=== PATIENT | female | born 1950 | race Caucasian/White ===

== ENCOUNTER 2019-06-13 16:03 | Emergency (ER) | payer OTHER, SELFPAY ==
[2019-06-13 16:04] VITALS: BP 122/71; PULSE 84; RESP 16; TEMP 36.3; O2SAT 95; BMI 25.5
[2019-06-13 16:47] LABS: Red Blood Cells-Urine 0 SEEN /hpf (0-5)
[2019-06-13 16:51] LABS: Color, Urine Yellow (Yellow); Glucose, Dipstick 100 mg/dl (Normal); Ketone-Dipstick Negative (Negative); Leukocyte Esterase-Dipstick 100 /ul (Negative); Nitrite-Dipstick Negative (Negative); Occult Blood-Urine Negative /ul (Negative); Protein-Dipstick Negative (Negative); Urine Bilirubin Dipstick Negative (Negative); Urine Clarity Sl. Cloudy (Clear); Urine Urobilinogen Normal (Normal)
--- NOTE | 2019-06-13 17:01 | CT_ITS ---
STUDY: CT ABDOMEN AND PELVIS WITH CONTRAST REASON FOR EXAM: Female, 68 years old. Lower abdominal pain. Nausea. RADIATION DOSAGE (If Supplied By Facility): CTDIvol = ( 13.22 ) mGy, DLP = ( 799.06 ) mGycm TECHNIQUE: Transaxial images were obtained from the dome of the diaphragm to the symphysis pubis without oral contrast. 100 IV Isovue 300 was administered. Sagittal and coronal images were reconstructed. Individualized dose optimization techniques were used for this CT. COMPARISON: None. FINDINGS: Small bilateral pleural effusions with subsegmental atelectasis at the lung bases. Heart is mildly enlarged. The liver is mildly enlarged. It demonstrates multiple small ill-defined hypodense lesions most suspicious for metastatic disease. There is marked biliary ductal dilatation in the left lobe with ill-defined low attenuation area containing multiple focal calcifications in segment 2A. Normal portal vein. There are surgical clips in the gallbladder fossa consistent with a prior cholecystectomy. There is mild splenomegaly. Normal pancreas. Normal bilateral adrenal glands. Normal right kidney. Normal left kidney. Normal visualized stomach. Normal small intestine. Normal colon. There is non-visualization of the appendix. There is diffuse thickening and increased density within the omentum suspicious for metastatic disease. There is diffuse ascites within the abdominal cavity without visualized. Needle implantation. There is diffuse atherosclerotic calcification of the abdominal aorta, without a demonstrated aneurysm. Normal inferior vena cava. There is AP window and left periaortic lymphadenopathy extending to the level of the bifurcation. Urinary bladder is collapsed otherwise unremarkable. Normal vaginal cuff. There is no pelvic lymphadenopathy. No free air is seen within the peritoneal cavity. There is mild anasarca of the soft tissues. There are degenerative changes of the hips and lumbar spine. CT/Abdomen/Pelvis W IV Cont ONLY IMPRESSION: 1. Diffuse ascites. 2. Omental thickening suggestive of metastatic disease. 3. Multiple vaguely hypoechoic foci within the liver suggesting metastatic disease. There is a larger area of abnormality with calcifications in the left liver causing biliary ductal dilatation. 4. Mild hepatomegaly. 5. Small bilateral pleural effusions and atelectasis. 6. Mild cardiomegaly. 7. Retroperitoneal lymphadenopathy. N.B. : The above information has been verbally conveyed by Armando Muniz DO to Monico Winslow MD, on 06/13/2019 18:04:27 (ET). Electronically Signed: Armando Muniz DO at 18:05 EDT Tel [phone], Service support ,
[2019-06-13 17:02] LABS: Absolute Neutrophil Count 10.2 X10^3/uL (2.0-7.7); Basophil# 0.01 X10^3/uL; Basophil% 0.1 % (0-1); Eosinophil# 0.01 X10^3/uL; Eosinophils% 0.1 % (0-5); Hematocrit 35.1 % (37-47); Hemoglobin 11.4 g/dL (12.0-15.0); Lymphocyte % 4.3 % (19-41); Mean Corp Hgb Conc 32.5 g/dL (32-36); Mean Corpuscular Volume 89.3 fL (81-99); Mean Platelet Vol. 8.8 fl (6.2-12.0); Monocyte# 0.96 X10^3/uL; Monocyte% 8.2 % (0-10); NRBC Flagged by Analyzer 0 % (0-5); Neutrophil # 10.19 X10^3/uL (2.7-7.7); Neutrophil % 86.7 % (47-70); POSITIVE DIFFERENTIAL YES; Platelet Count 360 K/mm3 (150-450); RBC Distribution Width CV 12.9 % (11.6-14.6); RBC Distribution Width SD 42.4 fl (35.1-43.9); Red Blood Count 3.93 M/mm3 (4.2-5.4); White Blood Count 11.7 K/mm3 (4.4-11.0)
[2019-06-13 17:16] LABS: Differential Indicated SCAN CRITERIA MET
[2019-06-13 17:33] LABS: Anion Gap 7 (5-15); BUN 15 mg/dL (7-18); BUN/Creat Ratio 18.7 RATIO (10-20); Calcium,Total 8.8 mg/dL (8.5-10.1); Chloride 102 mmol/L (98-107); EST Glomerular Filtration Rate 75 mL/min (>60); Est Glom Filt Rate - Afr Amer 91 mL/min (>60); Glucose 117 mg/dL (74-106); Potassium 3.3 mmol/L (3.5-5.1); Sodium Level 137 mmol/L (136-145)
[2019-06-13 17:37] LABS: Mucous, Urine 2+ /hpf (<or=2+); Squamous Epithelial Cells - UA 0-5 SEEN /hpf (5-10); White Blood Cells 0-5 SEEN /hpf (0-5)
[2019-06-13 17:38] LABS: Bacteria RARE /hpf (None Seen)
[2019-06-13 17:48] LABS: AST(SGOT) 16 U/L (15-37); Alanine Aminotransfer ALT/SGPT 15 U/L (13-56); Albumin, Serum 2.9 g/dL (3.2-5.0); Alkaline Phosphatase 95 U/L (45-117); Bilirubin, Direct 0.14 mg/dL (0.00-0.30); Globulin 4.1 g/dL (2.2-4.2); Platelet Estimate ADEQUATE (ADEQ)
[2019-06-13] MEDS: Morphine 4 MG/ML Syringe IV (17:48)
[2019-06-13] MEDS: 0.9% Normal Saline 1,000 ML 1000 ML IV (17:48)
[2019-06-13] MEDS: Ondansetron 4 MG/2 ML Vial IV (17:48)
[2019-06-13 17:49] LABS: Red Cell Morphology NORM C+C NORMAL (NORM C&C)
--- NOTE | 2019-06-13 18:16 | US_ITS ---
STUDY: ULTRASOUND OF THE FEMALE PELVIS - COMPLETE REASON FOR EXAM: Female, [address] Patient thinks ovaries have been removed with hysterectomy. TECHNIQUE: Transabdominal TECHNICAL QUALITY: Adequate. COMPARISON: CT of the abdomen and pelvis, June 13, 2019 FINDINGS: The uterus is surgically absent There is a soft tissue density along the right pelvic sidewall measuring 2.2 x 1.3 x 1.6 cm. This contains a 9 mm cyst. It is uncertain whether this represents a loop of bowel or the right ovary. There is no visualized right adnexal mass or complex lesion. The left ovary is not visualized. There is no visualized left adnexal mass or complex lesion. There is a large amount of ascites within the pelvis. US/Transvaginal Non- IMPRESSION: 1. Status post hysterectomy. 2. Nonvisualization left ovary. 3. Question right ovary containing a cyst versus a loop of small bowel. Electronically Signed: Armando Muniz DO at 19:32 EDT Tel [phone], Service support ,
--- NOTE | 2019-06-13 20:34 | ED.VISSUMM ---
- ER Visit Summary Date of Service: 06/13/19 Chief Complaint: Abdominal pain History of Present Illness: The patient is a [address] Ochoa. She reports that she has abdominal pain began 2 months ago and is gradually gotten worse. Said a constant aching pain that is sharp at times. She reports that she feels bloated. Pain is 9 out of 10 at worst and 7 on 10 currently. Is worsened by movement and relieved by remaining still. She has had nausea without vomiting. No diarrhea. Her last bowel was yesterday. No melena or hematochezia. She does report decreased flatus. She reports that she does have dysuria every once in a while. She did have this today. She is also had frequent urination. Patient reports that she had a hysterectomy in the distant past. They did not remove her ovaries. She had a colonoscopy approximately 13 years ago. Physical Examination: Vitals: Stable. Afebrile. General: Well-nourished and well-developed. Head: Normocephalic atraumatic. Neck: Supple, no lymphadenopathy. No JVD. Nontender. Cardiovascular: Regular rate and rhythm. No murmurs. Respiratory: No respiratory distress. Clear to auscultation bilaterally. Abdominal: Soft, mild diffuse tenderness to palpation, nondistended, normal bowel sounds. No guarding, rebound, or peritoneal signs. Back: Nontender. Extremities: Nontender, no edema. Skin: Normal color, no rash. Neurologic: Alert and oriented ?3. Cranial nerves II through XII are intact. Normal strength and sensation. Psych: Normal affect. Test Results: CBC shows a white count of 11.7, H&H of 11.4 and 35.1, 7 neutrophils 87, lymphocytes 4. Chem-7 shows a potassium 3.3 and glucose 117. LFTs showed albumin 2.9. UA is negative. Clinical Impression(s) from Imaging Studies Abdomen/Pelvis CT 06/13/19 17:01 IMPRESSION: 1. Diffuse ascites. 2. Omental thickening suggestive of metastatic disease. 3. Multiple vaguely hypoechoic foci within the liver suggesting metastatic disease. There is a larger area of abnormality with calcifications in the left liver causing biliary ductal dilatation. 4. Mild hepatomegaly. 5. Small bilateral pleural effusions and atelectasis. 6. Mild cardiomegaly. 7. Retroperitoneal lymphadenopathy. N.B. : The above information has been verbally conveyed by Armando Muniz DO to Monico Winslow MD, on 06/13/2019 18:04:27 (ET). Electronically Signed: Armando Muniz DO at 18:05 EDT Tel [phone], Service support , ADDENDUM: 06/13/19 1812 IMPRESSION: 1. Diffuse ascites. 2. Omental thickening suggestive of metastatic disease. 3. Multiple vaguely hypoechoic foci within the liver suggesting metastatic disease. There is a larger area of abnormality with calcifications in the left liver causing biliary ductal dilatation. 4. Mild hepatomegaly. 5. Small bilateral pleural effusions and atelectasis. 6. Mild cardiomegaly. 7. Retroperitoneal lymphadenopathy. N.B. : The above information has been verbally conveyed by Armando Muniz DO to Monico Winslow MD, on 06/13/2019 18:04:27 (ET). Electronically Signed: Armando Muniz DO at 18:05 EDT Tel [phone], Service support , Transvaginal US 06/13/19 18:16 IMPRESSION: 1. Status post hysterectomy. 2. Nonvisualization left ovary. 3. Question right ovary containing a cyst versus a loop of small bowel. Electronically Signed: Armando Muniz DO at 19:32 EDT Tel [phone], Service support , Emergency Department Course and Treatment: Patient was treated with morphine and Zofran. She is resting more comfortably. Treatment Plan: The patient was discussed with Dr. Ward. Given the distribution of metastases it is felt this is most likely ovarian in origin. She will was discussed with [facility], her hospital of choice, and will be transferred there for further evaluation and treatment. Disposition: Transferred in serious condition. Impression: 1. Metastatic cancer, newly diagnosed. This note was generated with Memriseation software. It may contain incorrect words, spelling, and punctuation that were not noted in review of the chart prior to signing ED Disposition - Plan for ED Patient: Referrals: Reginald Ochoa MD [Primary Care Provider] -
--- NOTE | 2019-06-13 22:52 | NURSING ---
ACCEPTED TO [facility] BY DR. VILLALTA [phone] REPORT BED [id number]
[2019-06-13 23:17] VITALS: BP 154/69; PULSE 82; RESP 16; O2SAT 94
[2019-06-13 23:26] VITALS: BP 154/79; PULSE 82; RESP 16; O2SAT 94
[2019-06-16 17:04] LABS: Cancer Antigen 125 590.1 U/mL (0.0-38.1)
== END 2019-06-13 23:32 | disposition short-term general hospital (02) ==
LOC: ED 17:17
PROVIDERS: Emergency Provider Emergency Medicine; Family Provider Family Medicine; PCP Family Medicine
DX: C79.9 Secondary malignant neoplasm of unspecified site (principal); Z90.710 Acquired absence of both cervix and uterus; I25.10 Atherosclerotic heart disease of native coronary artery without angina pectoris; Z79.82 Long term (current) use of aspirin; Z79.899 Other long term (current) drug therapy
CPT/HCPCS: 36415; 74177; 76830; 80048; 80076; 81001; 85025; 86304; 96361; 96374; 96375; 99284; J7030; Q9967; A4216; J2405

== ENCOUNTER 2019-06-27 07:26 | Day surgery (SDC) | payer SELFPAY ==
[2019-06-26 14:05] VITALS: BMI 25.5
--- NOTE | 2019-06-26 14:51 | HP.PCM_ITS ---
Problem List (1) Malignant ascites Status: Acute (2) Carcinoma of ovary, stage 4 Status: Acute Qualifiers: Laterality: unspecified laterality Qualified Code(s): C56.9 - Malignant neoplasm of unspecified ovary History and Physical Date of Admission: 06/26/19 Intake Vital Signs 06/26/19 Body Mass Index (BMI) 25.5 06/26/19 Height 5 ft 4 in 06/26/19 Weight: 168 lb 06/26/19 Body Mass Index (BMI) 28.8 06/26/19 Blood Pressure 112/72 06/26/19 Blood Pressure Location Rt brachial 06/26/19 Respiratory Rate 20 H 06/26/19 Pulse Rate 70 06/26/19 Pulse Source Monitor 06/26/19 Temperature 98.2 F 06/26/19 Temperature Source Oral 06/26/19 Pulse Ox 90 06/26/19 Oxygen Delivery Method room air Intake Visit Reasons: pleurex catheter placement Clinical Esthetician Required: No Is patient in pain?: No Allergies Sulfa (Sulfonamide Antibiotics) Allergy (Verified 06/26/19 13:59) Other Medications Aspirin [Aspirin EC] 81 mg PO DAILY 06/13/19 [History Confirmed 06/26/19] Atorvastatin Calcium [Lipitor] 40 mg PO QHS 06/13/19 [History Confirmed 06/26/19] Clopidogrel Bisulfate [Clopidogrel] 75 mg PO DAILY 06/13/19 [History Confirmed 06/26/19] Isosorbide Mononitrate [Imdur] 30 mg PO DAILY 06/13/19 [History Confirmed 06/26/19] Lisinopril 5 mg PO DAILY 06/13/19 [History Confirmed 06/26/19] Metoprolol Tartrate 25 mg PO BID 06/13/19 [History Confirmed 06/26/19] ferrous sulfate 325 mg (65 mg iron) tablet 325 mg PO DAILY 06/26/19 [History Confirmed 06/26/19] nitroglycerin 0.3 mg sublingual tablet 0.3 mg SUBLINGUAL Q5-15M 06/26/19 [History Confirmed 06/26/19] ondansetron HCl 4 mg tablet 4 mg PO TID-QID 06/26/19 [History Confirmed 06/26/19] oxycodone 5 mg tablet 5 mg PO Q4H tab 06/26/19 [History Confirmed 06/26/19] polyethylene glycol 3350 17 gram/dose oral powder 8.5 g PO DAILY 06/26/19 [History Confirmed 06/26/19] ranitidine 150 mg tablet 150 mg PO BID tab 06/26/19 [History Confirmed 06/26/19] sennosides 8.6 mg-docusate sodium 50 mg tablet 1 tab PO BID 06/26/19 [History Confirmed 06/26/19] PFSH Medical History Ascites (Acute) Hypercholesterolemia (Acute) Surgical History History of cholecystectomy (Acute) History of coronary artery stent placement (Acute) History of hysterectomy (Acute) Social History (Updated 06/26/19 @ 14:49 by Jose Interiano MD) Smoking Status: Never smoker alcohol intake: never substance use type: does not use HPI HPI HPI: MCKENZIE MENG, is a 68 F who presents to the office today for HPI HPI HPI: MCKENZIE MENG, is a 68 F who presents to the office today for abdominal swelling. Patient had a CT scan at the end of May in the emergency room which showed omental caking and ascites. She was transferred to [facility] and at that hospital she had multiple scans and biopsies which did not show primary tumor but she had malignant ascites with liver mets. Patient notes that she is very distended and uncomfortable. She has elected for hospice but would like option for drainage of ascites. ROS General General: Yes weight change and fatigue; no appetite, colon cancer, breast cancer or weakness HEENT HEENT: No difficulty swallowing, eye injury, eye surgery, swollen glands or hoarseness Endo Endocrine: No thyroid disease, diabetes mellitus, thyroid cancer, Hair loss, heat intolerance or cold intolerance Skin Skin: No rash or changing moles Breast Breast: No left breast lump, right breast lump, nipple discharge, breast pain, abnormal mammogram, abnormal US or breast enlargement Musc Musculoskeletal: Yes back problems; no arthritis, rheumatoid arthritis, gout or joint pain Cardio Cardiovascular: Yes heart disease and heart stent; no murmur, pacemaker, atrial fibrillation, high blood pressure, heart attack, palpitations, shortness of breat with exertion or chest pain Psych Psychiatric: No depression, anxiety or hearing voices Resp Respiratory: Yes shortness of breath, No sleep apnea, No cough, No COPD, No asthma, No emphysema, No wheezing Gastro Gastrointestinal: Yes abdominal pain, Yes nausea or vomiting, No diarrhea, Yes constipation, No blood in stool, No acid reflux, No hemorrhoids, No ulcers, No gallbladder problem, No black,tarry stools Florentin Hematologic: Yes blood thinners, No blood disorders, No bleeding, No anemia, No blood clots Neuro Neurologic: No system reviewed and no additional complaints, except as docu, No as per HPI, No abnormal walking, No abnormal hearing, No abnormal movements, No abnormal speech, No behavioral changes, No burning sensations, No confusion, No seizure-like activity, No unsteadiness, No dizziness, No localized weakness, No frequent falls, No headache(s), No lack of coordination, No loss of vision, No memory loss, No numbness, No other visual disturbances, No radiating pain, No re stless legs, No sensory deficit, No fainting, No tingling, No tremor(s), No weakness, No other Exam Const General: cooperative Orientation: alert, oriented x3 Chest Breast Palpation: No nipple discharge Resp Effort & Inspection: normal respiratory effort Auscultation: clear to auscultation bilaterally Cardio Rate: regular rate Rhythm: regular rhythm Heart Sounds: no murmurs GI Inspection: distended Palpation: firm, nontender, ascites Assessment & Plan Problems 1. 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 Patient presents for Pleurx catheter placement of the abdomen to control ascites. Patient is currently in outpatient hospice. Patient is also on aspirin and Plavix for heart stent placed in October. She has been off of these for 2 days in anticipation of surgery. I recommend getting the surgery done as soon as possible and getting her back on her aspirin and Plavix. I explained that doing the surgery has a risk of bleeding, infection, sepsis. Patient understands risks and wants to proceed. I will get her scheduled tomorrow for Pleurx catheter placement in the abdomen under ultrasound guidance. Jose Interiano MD Pager: [facility] [address] [place] [address], [address] [place] [address] Office:
[2019-06-27] VITALS (7 sets, daily range): BP systolic 117–149; BP diastolic 67–87; PULSE 68–76; RESP 12–18; TEMP 36.8–36.9; O2SAT 93; BMI 29.7
[2019-06-27] MEDS: Cefazolin 2 GM in 0.9% Normal Saline 100 ML IV (08:55)
[2019-06-27] MEDS: Bupiv/Epi 0.25% 30 ML Vial (09:10)
--- NOTE | 2019-06-27 09:38 | OP.PCM_ITS ---
Problem List (1) Malignant ascites Status: Acute (2) Carcinoma of ovary, stage 4 Status: Acute Qualifiers: Laterality: unspecified laterality Qualified Code(s): C56.9 - Malignant neoplasm of unspecified ovary Report of Operation Date of Procedure: 06/27/19 Pre-Operative Diagnosis: Malignant ascites Post-Operative Diagnosis: Same Surgery/Procedure Performed:: Ultrasound-guided insertion of Pleurx catheter into the abdominal cavity Drains: Pleurx catheter left abdomen Description of Procedure: Patient was brought back to the operating room and MAC anesthesia was induced. The ultrasound was used to inspect the abdomen and a location was chosen on the left side of the abdomen. Next the abdomen was prepped and draped in usual sterile fashion. Using ultrasound guidance the area that was chosen was injected with Marcaine with epinephrine. Next a counterincision was also injected with epinephrine and the so was the tunnel. An incision and counterincision were made with a scalpel. Next using the introducer needle and ultrasound guidance the introducer needle was placed into the abdomen and clear serous fluid was aspirated. Guidewire was placed through this and the introducer was removed. The dilator with peel-away sheath was placed into the incision and the guidewire was removed. Next the tunneler was attached to the catheter and placed through the lower incision and brought out the upper incision. The catheter was advanced until the cuff was under the subcutaneous tissue. Next the tunneler was removed and the dilator was taken from the peel- away sheath and the catheter was placed through the peel-away sheath into the abdomen. The peel-away sheath was then peeled away. The catheter appeared non- kinked. The catheter was placed to gravity drainage. Next the upper incision was closed with 2 interrupted 4-0 Monocryl sutures and Dermabond glue. The lower incision was closed with a 3-0 silk suture and the catheter was sutured to the skin. The abdomen was allowed to drain until about 2.5 liters of serous fluid were removed. The catheter was then capped and a dressing was applied. Patient was then taken to PACU in stable condition. - Admit VTE Documentation VTE Mechan Device Prophylaxis: SCD's
--- NOTE | 2019-06-27 09:41 | DCINST_ITS ---
You will use the following diet at home:: No restrictions, Regular Your food should be the consistency of: Regular Discharge Activity: Return to Normal Activity Call your doctor if your incision/area has: Sudden Increased Bleeding, Increased Pain/ Swelling, Increased Redness, Foul Smelling Discharge, Swelling at the incision site Call your doctor if you observe: Fever of 101 or Higher Additional Dressing/Incision Instructions:: Remove Dressing in 3 days and change as needed. Allergies/Adverse Reactions: Allergies Sulfa (Sulfonamide Antibiotics) Allergy (Verified 06/26/19 15:31) Other Medications to take at Discharge Aspirin [Aspirin EC] 81 mg PO DAILY 06/13/19 Atorvastatin Calcium [Lipitor] 40 mg PO QHS 06/13/19 Clopidogrel Bisulfate [Clopidogrel] 75 mg PO DAILY 06/13/19 Isosorbide Mononitrate [Imdur] 30 mg PO DAILY 06/13/19 Lisinopril 5 mg PO DAILY 06/13/19 Metoprolol Tartrate 25 mg PO BID 06/13/19 Omeprazole [Prilosec] 20 mg PO DAILY 06/26/19 Pantoprazole Sodium [Protonix] 20 mg PO BID 06/26/19 ferrous sulfate 325 mg (65 mg iron) tablet 325 mg PO DAILY 06/26/19 nitroglycerin 0.3 mg sublingual tablet 0.3 mg SUBLINGUAL Q5-15M 06/26/19 ondansetron HCl 4 mg tablet 4 mg PO TID-QID 06/26/19 oxycodone 5 mg tablet 5 mg PO Q4H tab 06/26/19 polyethylene glycol 3350 17 gram/dose oral powder 8.5 g PO DAILY 06/26/19 sennosides 8.6 mg-docusate sodium 50 mg tablet 1 tab PO BID 06/26/19 Primary Care Physician: Reginald Ochoa MD [Primary Care Provider] - Test Results: Test results from this visit will be discussed in further detail at your follow- up appointment, if applicable.
== END 2019-06-27 11:43 | disposition home or self-care (01) ==
LOC: SDC 07:31 → AC 07:31
PROVIDERS: Family Provider Family Medicine; PCP Family Medicine; Referring Provider Surgery; Visit Provider Surgery
PROC: (CPT 32550; principal; 2019-06-27 09:15)
DX: C56.9 Malignant neoplasm of unspecified ovary (principal); C78.7 Secondary malignant neoplasm of liver and intrahepatic bile duct; R18.0 Malignant ascites; E78.00 Pure hypercholesterolemia, unspecified; K21.9 Gastro-esophageal reflux disease without esophagitis; I25.2 Old myocardial infarction; I10 Essential (primary) hypertension; Z95.5 Presence of coronary angioplasty implant and graft; Z79.82 Long term (current) use of aspirin; Z79.899 Other long term (current) drug therapy
CPT/HCPCS: 49418; J7120; C1729